=== PATIENT | male | born 1945 | race Caucasian/White ===

== ENCOUNTER 2021-03-16 10:59 | Emergency (ER) | payer OTHER ==
[~2021-03-16] VITALS: Ht 175.3 cm; Wt 72.6 kg
--- NOTE | ~2021-03-16 | EMS ---
[address] [address] EMS Patient Care Report Name: CHARLIE JEREZ Room #: DEP GREGORY Méndez#: [id number] Admission: 03/16/21 Attend Phys: Discharge: 03/16/21 Date of : 49 Report #: [id number] THIS REPORT FOR: //name// Report Transmitted: 03/19/2021 14:08 EMS Care Summary [place], [place]/[facility] Incident [id number] @ 03/16/2021 10:33 Incident Location [address] [place] [address] Patient CHARLIE JREEZ Male, 75 Years 1945 Patient Address [address] [place] [address] [place] [address] Patient History Dialysis, Chief Complaint syncopal Disposition Transported No Lights/[place] Dispatch Reason Sick Person Transported To [facility] Narrative EMS arrived on scene to find a 75 y/o male who had completed his dialysis treatment. As the staff were unhooking the pt from dialysis he had a syncopal episode that lasted briefly. The pt was normally GCS of 15. On EMS arrival the pt was responsive and talking, but slow to answer some questions. Pt could answer simple questions, but had a difficult time answering anything complicated. The pt was negative on the CSS. The pt denied chest pain, denied soa, denied headache, the pt denied any complaints. Pt vitals monitored. Pt vitals stable. Pt condition did not change en route. Pt care transferred. [address] [address] EMS Patient Care Report Name: CHARLIE JEREZ Room #: DEP Honey#: [id number] Admission: 03/16/21 Attend Phys: Discharge: 03/16/21 Date of : 49 Report #: [id number] Initial Vitals @10:49P: 71,R: 14,BP: 144/74,Pain: 0/10,GCS: 14,CO: 4,SpO2: 98,Revised Trauma: 12, @10:54P: 72,R: 14,BP: 144/77,Pain: 0/10,GCS: 14,CO: 3,SpO2: 99,Revised Trauma: 12, Assessments @10:51MENTAL:Place Oriented,Event Oriented,Person Oriented,SKIN:No Abnormalities,HEENT:Head/Face: No Abnormalities,Eyes: No Abnormalities,Neck/Airway: No Abnormalities,LUNG SOUNDS:General: No Abnormalities,Left Upper: No Abnormalities,Right Upper: No Abnormalities,Left Lower: No Abnormalities,Right Lower: No Abnormalities,ABDOMEN:General: No Abnormalities,Left Upper: No Abnormalities,Right Upper: No Abnormalities,Left Lower: No Abnormalities,Right Lower: No Abnormalities,PELVIS//GI:No Abnormalities,EXTREMITIES:Left Arm: No Abnormalities,Right Arm: No Abnormalities,Left Leg: No Abnormalities,Right Leg: No Abnormalities,PULSE:NEURO:No Abnormalities, Impression Syncope / Fainting Procedures @10:51ALS AssessmentResponse: UnchangedSucceeded Timeline 10:32,Call Received 10:32,Dispatch Notified 10:33,Dispatched 10:33,En Route 10:42,On Scene 10:44,At Patient 10:49,BP: 144/74 M,PULSE: 71,RR: 14 R,SPO2: 98 Ox,ETCO2: ,BG: ,PAIN: 0,GCS: 14, 10:51,ALS Assessment,Response: UnchangedSucceeded, 10:52,Depart Scene 10:54,At Destination 10:54,BP: 144/77 M,PULSE: 72,RR: 14 R,SPO2: 99 Ox,ETCO2: ,BG: ,PAIN: 0,GCS: 14, 11:02,Call Closed Disclaimer [email or web address] Copyright 2020 [email or web address] This EMS Care Summary contains data elements from the applicable legal record (which may be displayed differently). It is designed to provide pertinent information for the following purposes: continuity of care, clinical quality, and state data reporting. The complete legal record is available to ED staff and administrators of the receiving hospital in [employer]'s Patient Tracker. All data is provided "as is."
[2021-03-16 12:01] LABS: ABSOLUTE NEUTROPHILS 5.4 thou/uL (1.4-8.2); BASOPHILS 0.7 % (0.0-2.0); EOSINOPHILS 5.3 % (0.0-3.0); HEMATOCRIT 28.7 % (42.0-52.0); HEMOGLOBIN 9.2 gm/dL (14.0-18.0); MCH 27.2 pg (26.0-34.0); MCHC 31.9 g/dL (28.0-37.0); MONOCYTES 8.8 % (1.0-8.0); PLATELET COUNT 141 thou/uL (150-400); POLYS 75.2 % (36.0-66.0); RBC 3.37 mil/uL (4.50-6.00); RDW 18.1 % (10.5-14.5); WBC 7.2 thou/uL (4.0-11.0)
[2021-03-16 12:07] LABS: ANION GAP 8 mmol/L (7-16); BUN 40 mg/dL (7-18); CALCIUM 8.4 mg/dL (8.5-10.1); CHLORIDE 101 mmol/L (98-107); CO2 28 mmol/L (21-32); GLUCOSE 89 mg/dL (74-106); POTASSIUM 3.7 mmol/L (3.5-5.1); SODIUM 137 mmol/L (136-145)
--- NOTE | 2021-03-16 12:11 | EKG ---
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 : 1945 Requested By: Vicente Green Order Number: [id number] MD: Isaac Patel Measurements Intervals [place] Rate: 64 P: 83 CT: 170 QRS: 57 QRSD: 128 T: 1 QT: 434 QTc: 448 Interpretive Statements Sinus rhythm Atrial premature complex Right bundle branch block No previous ECG available for comparison Electronically Signed On 03-16-2021 12:11:05 CDT by Isaac Patel [email or web address] <ELECTRONICALLY SIGNED> By: Isaac Patel MD, [facility] 03/16/21 1211 1112 1112 Isaac Patel MD, [facility] /EPI
[2021-03-16 12:16] LABS: ALBUMIN 3.4 g/dL (3.4-5.0); SGOT 25 U/L (15-37); SGPT 28 U/L (30-65); TOTAL BILIRUBIN 0.6 mg/dL (0.2-1.0); TOTAL PROTEIN 7.1 g/dL (6.4-8.2); TROPONIN-I <0.06 ng/mL (<0.06)
[2021-03-16 13:08] LABS: ANISOCYTOSIS 1+; PLATELET ESTIMATE NORMAL
[2021-03-16 17:27] LABS: URINE BILIRUBIN NEGATIVE (Negative); URINE BLOOD NEGATIVE (Negative); URINE CLARITY SL CLOUDY; URINE COLOR YELLOW; URINE GLUCOSE-RANDOM* NEGATIVE (Negative); URINE KETONES TRACE (Negative); URINE NITRITE-REFLEX NEGATIVE (Negative); URINE PROTEIN (DIPSTICK) TRACE (Negative); URINE SPECIFIC GRAVITY 1.015 (1.005-1.035); URINE UROBILINOGEN 0.2 E.U./dl (0.2-1.0)
[2021-03-16 17:30] LABS: URINE LEUKOCYTES-REFLEX 3+ (Negative)
[2021-03-16 17:58] LABS: BACTERIA-REFLEX >30 Many /HPF (None Seen); CASTS None Seen /LPF (None Seen); CRYSTALS None Seen /LPF (None Seen); SQUAMOUS 4-10 Moderate /LPF (0-3); URINE RBC None Seen /HPF (NONE SEEN); URINE WBC-REFLEX >25 Many /HPF (0-5)
[2021-03-16] MEDS ORDERED: MACROBID 100 M100 M1 PO (20:09)
[2021-03-16 20:34] VITALS: BP 140/66
[2021-03-16 20:55] LABS: AMP/METHAMP Negative (Negative); BARBITURATES Negative (Negative); BENZODIAZEPINES Negative (Negative); COCAINE Negative (Negative); METHADONE Negative (Negative); OPIATES Negative (Negative); PCP Negative (Negative)
== END 2021-03-16 20:35 | disposition home or self-care (01) ==
LOC: ER 10:59
PROVIDERS: Emergency Medicine
DX: R55 Syncope and collapse (principal); Z20.822 Contact with and (suspected) exposure to COVID-19; N39.0 Urinary tract infection, site not specified